=== PATIENT | male | born 1980 | race Caucasian/White ===

== ENCOUNTER 2018-07-02 10:20 | Emergency (ER) | payer BC ==
[2018-07-02] MEDS ORDERED: Ondansetron 4 MG/2 ML SDV IVPUSH ONE (10:30)
[2018-07-02] MEDS ORDERED: Ketorolac 30 MG/ML SDV IVPUSH ONE (10:30)
[2018-07-02] MEDS ORDERED: Sodium Chloride 0.9% 1,000 ML IV ONE (10:30)
--- NOTE | 2018-07-02 10:33 | EDM.PDOC ---
ED HPI GENERAL MEDICAL PROBLEM - General Chief Complaint: Flank Pain Stated Complaint: PAIN IN STOMACH Time Seen by Provider: 07/02/18 10:27 Source of Information: Reports: Patient History Limitations: Reports: No Limitations - History of Present Illness INITIAL COMMENTS - FREE TEXT/NARRATIVE: HISTORY AND PHYSICAL: History of present illness: He shouldn't is a 38-year-old male who presents to the emergency room today with complaints of right-sided flank and abdominal pain. He states he did have an episode similar approximately 2 weeks ago which lasted approximately 24 hours. He thought he may have had a kidney stone and passed it. This morning he woke up with pain again along the right flank wrapping around to the right mid abdomen. He states he has not been able to void yet this morning. Does have nausea, vomiting and loose stools today. Patient denies any fever, chills, headache, change in vision, syncope or near syncope. Denies any chest pain, back pain, shortness of breath or cough. Has not noted any blood in urine or stool. Denies any recent injury, trauma or falls. Patient has been eating and drinking appropriately. Review of systems: As per history of present illness and below otherwise all systems reviewed and negative. Past medical history: As per history of present illness and as reviewed below otherwise noncontributory. Surgical history: As per history of present illness and as reviewed below otherwise noncontributory. Social history: See social history for further information Family history: As per history of present illness and as reviewed below otherwise noncontributory. Physical exam: General: Well-developed and well-nourished 38-year-old male. Alert and oriented. Nontoxic appearing and in no acute distress. HEENT: Atraumatic, normocephalic, pupils equal and reactive bilaterally, negative for conjunctival pallor or scleral icterus, mucous membranes moist, TMs normal bilaterally, throat clear, neck supple, nontender, trachea midline. No drooling or trismus noted. No meningeal signs. No hot potato voice noted. Lungs: Clear to auscultation, breath sounds equal bilaterally, chest nontender. Heart: S1S2, regular rate and rhythm without overt murmur Abdomen: Soft, nondistended, nontender. Negative for masses or hepatosplenomegaly. Negative for costovertebral tenderness. Pelvis: Stable nontender. Genitourinary: Deferred. Rectal: Deferred. Skin: Intact, warm, dry. No lesions or rashes noted. Extremities: Atraumatic, moves all extremities per self with difficulty or deficits, negative for cords or calf pain. Neurovascular unremarkable. Neuro: Awake, alert, oriented. Cranial nerves II through XII unremarkable. Cerebellum unremarkable. Motor and sensory unremarkable throughout. Exam nonfocal. Notes: Patient states that he has had kidney stones in the past but has not ever had to see a urologist for management of this. He states he is usually pass on their own. Patient is agreeable to lab work and imaging at this time. CT of the abdomen and pelvis shows a 3 mm obstructing stone with the proximal right ureter mild to moderate proximal hydronephrosis. Patient does have a white count of 22. He did not find relief with the Toradol or morphine. He still appears in moderate to severe pain. We'll give him 1 mg of Dilaudid for better pain management. Dr. Yeh was consulted on this case. He will like the patient to come directly to his office after being discharged from the emergency room. Patient' s vital signs are stable and he is able to get a ride over to Dr. Cosby's urology clinic. Supportive care measures were reviewed and discussed. Voices understanding and is agreeable to plan of care. Denies any further questions or concerns at this time. Diagnostics: CBC, CMP, UA, CT abdomen and pelvis Therapeutics: IV fluid, Toradol, Zofran, Morphine, Dilaudid, Levaquin Impression: Kidney stone, right Plan: 1. Please go directly to Dr. Yeh's urology clinic for reevaluation and further management. 2. Return to the ED as needed and as discussed. Definitive disposition and diagnosis as appropriate pending reevaluation and review of above. right flank Pain Score (Numeric/FACES): 10 - Related Data Allergies Allergy/AdvReac Type Severity Reaction Status Date / Time Penicillins Allergy Anaphylactic Verified 07/02/18 10:30 Shock Home Meds: Home Meds . [No Known Home Meds] 07/02/18 [History] ED ROS GENERAL - Review of Systems Review Of Systems: ROS reveals no pertinent complaints other than HPI. ED EXAM, GI/ABD - Physical Exam Exam: See Below (See dictation) Course - Vital Signs Last Recorded V/S: Last Vital Signs Temp 97.4 F 04/18/19 10:27 Pulse 92 07/02/18 10:27 Resp 20 07/02/18 10:27 BP 141/81 H 07/02/18 10:27 Pulse Ox 96 07/02/18 10:27 - Orders/Labs/Meds Orders: Active Orders 24 hr Category Date Time Status Urinary Catheter Assessment [RC] ASDIRECTED Care 07/02/18 12:31 Active Urinary Catheter Insertion [Insert Urinary Catheter] [ Care 07/02/18 12:15 Ordered OM.PC] Stat CBC WITH AUTO DIFF [HEME] Stat Lab 07/02/18 10:32 Received COMPREHENSIVE METABOLIC PN,CMP [CHEM] Stat Lab 07/02/18 10:32 Received UA RFX TONY AND CULT IF INDIC [URIN] Stat Lab 07/02/18 12:27 Ordered Labs: Laboratory Tests 07/02/18 07/02/18 07/02/18 Range/Units 10:32 10:32 12:23 WBC 22.52 H (4.0-11.0) K/uL RBC 5.13 (4.50-5.90) M/uL Hgb 16.3 (13.0-17.0) g/dL Hct 47.8 (38.0-50.0) % MCV 93.2 (80.0-98.0) fL MCH 31.8 (27.0-32.0) pg MCHC 34.1 (31.0-37.0) g/dL RDW Std Deviation 44.9 (28.0-62.0) fl RDW Coeff of [place] 14 (11.0-15.0) % Plt Count 253 (150-400) K/uL MPV 9.70 (7.40-12.00) fL Add Manual Diff YES Neutrophils % (Manual) 80 (48.0-80.0) % Band Neutrophils % 3 % Lymphocytes % (Manual) 12 L (16.0-40.0) % Monocytes % (Manual) 2 (0.0-15.0) % Eosinophils % (Manual) 2 (0.0-7.0) % Basophils % (Manual) 1 (0.0-1.5) % Absolute Seg Neuts 18.0 H (1.4-5.7) Band Neutrophils # 0.7 Lymphocytes # (Manual) 2.7 H (0.6-2.4) Monocytes # (Manual) 0.5 (0.0-0.8) Eosinophils # (Manual) 0.5 (0.0-0.7) Basophils # (Manual) 0.2 H (0.0-0.1) Reactive Lymphocytes FEW Sodium 139 (136-148) mmol/L Potassium 4.4 (3.5-5.1) mmol/L Chloride 102 (98-107) mmol/L Carbon Dioxide 26.7 (21.0-32.0) mmol/L BUN 15 (7.0-18.0) mg/dL Creatinine 1.4 H (0.8-1.3) mg/dL Est Cr Clr Drug Dosing 74.70 mL/min Estimated GFR (MDRD) 56.1 ml/min Glucose 109 H (74-106) mg/dL Calcium 8.8 (8.5-10.1) mg/dL Total Bilirubin 0.3 (0.2-1.0) mg/dL AST 23 (15-37) IU/L ALT 40 (14-63) IU/L Alkaline Phosphatase 72 (46-116) U/L Total Protein 7.4 (6.4-8.2) g/dL Albumin 4.0 (3.4-5.0) g/dL Globulin 3.4 (2.6-4.0) g/dL Albumin/Globulin Ratio 1.2 (0.9-1.6) Urine Color YELLOW Urine Appearance CLEAR Urine pH 6.0 (5.0-8.0) Ur Specific [place] >= 1.030 (1.001-1.035) Urine Protein TRACE H (NEGATIVE) mg/dL Urine Glucose (UA) NEGATIVE (NEGATIVE) mg/dL Urine Ketones NEGATIVE (NEGATIVE) mg/dL Urine Occult Blood NEGATIVE (NEGATIVE) Urine Nitrite NEGATIVE (NEGATIVE) Urine Bilirubin NEGATIVE (NEGATIVE) Urine Urobilinogen 0.2 (<2.0) EU/dL Ur Leukocyte Esterase NEGATIVE (NEGATIVE) Urine RBC 0-1 (0-2/HPF) Urine WBC 0-1 (0-5/HPF) Ur Epithelial Cells RARE (NONE-FEW) Urine Bacteria RARE (NEGATIVE) Urine Mucus LIGHT (NONE-MOD) Meds: Medications Discontinued Medications Generic Name Dose Route Start Last Admin Trade Name Freq PRN Reason Stop Dose Admin Hydromorphone HCl 1 mg 07/02/18 11:28 07/02/18 11:35 Dilaudid IVPUSH 07/02/18 11:29 1 mg ONETIME ONE Administration Sodium Chloride 1,000 mls @ 999 mls/hr 07/02/18 10:30 07/02/18 10:36 Normal Saline IV 07/02/18 11:30 999 mls/hr STAT ONE Administration Levofloxacin/Dextrose 500 mg/ 100 mls @ 100 mls/hr 07/02/18 11:34 07/02/18 11 :42 Premix IV 07/02/18 12:33 100 mls/hr ONETIME ONE Administration Ketorolac Tromethamine 30 mg 07/02/18 10:30 07/02/18 10:35 Toradol IVPUSH 07/02/18 10:31 30 mg ONETIME ONE Administration Morphine Sulfate 4 mg 07/02/18 11:01 07/02/18 11:05 Morphine IVPUSH 07/02/18 11:02 4 mg ONETIME ONE Administration Ondansetron HCl 4 mg 07/02/18 10:30 07/02/18 10:36 Zofran IVPUSH 07/02/18 10:31 4 mg ONETIME ONE Administration Departure - Departure Time of Disposition: 13:10 Disposition: Home, Self-Care 01 Clinical Impression: Kidney stone on right side - Discharge Information Instructions: Kidney Stones, [id number] Referrals: PCP,Unknown [Primary Care Provider] - Forms: ED Department Discharge Additional Instructions: The following information is given to patients seen in the emergency department who are being discharged to home. This information is to outline your options for follow-up care. We provide all patients seen in our emergency department with a follow-up referral. The need for follow-up, as well as the timing and circumstances, are variable depending upon the specifics of your emergency department visit. If you don't have a primary care physician on staff, we will provide you with a referral. We always advise you to contact your personal physician following an emergency department visit to inform them of the circumstance of the visit and for follow-up with them and/or the need for any referrals to a consulting specialist. The emergency department will also refer you to a specialist when appropriate. This referral assures that you have the opportunity for follow-up care with a specialist. All of these measure are taken in an effort to provide you with optimal care, which includes your follow-up. Under all circumstances we always encourage you to contact your private physician who remains a resource for coordinating your care. When calling for follow-up care, please make the office aware that this follow-up is from your recent emergency room visit. If for any reason you are refused follow-up, please contact the [facility] Emergency Department at and asked to speak to the emergency department charge nurse. [facility] Specialty Care - Urology [address] [place] [id number] 1. Please go directly to Dr. Yeh's urology clinic for reevaluation and further management. He is expecting you NOW. 2. Return to the ED as needed and as discussed. - My Orders Last 24 Hours: My Active Orders 07/02/18 10:32 CBC WITH AUTO DIFF [HEME] Stat COMPREHENSIVE METABOLIC PN,CMP [CHEM] Stat 07/02/18 12:15 Urinary Catheter Insertion [Insert Urinary Catheter] [OM.PC] Stat 07/02/18 12:27 UA RFX TONY AND CULT IF INDIC [URIN] Stat 07/02/18 12:31 Urinary Catheter Assessment [RC] ASDIRECTED - Assessment/Plan Last 24 Hours: My Active Orders 07/02/18 10:32 CBC WITH AUTO DIFF [HEME] Stat COMPREHENSIVE METABOLIC PN,CMP [CHEM] Stat 07/02/18 12:15 Urinary Catheter Insertion [Insert Urinary Catheter] [OM.PC] Stat 07/02/18 12:27 UA RFX TONY AND CULT IF INDIC [URIN] Stat 07/02/18 12:31 Urinary Catheter Assessment [RC] ASDIRECTED
[2018-07-02] MEDS ORDERED: Morphine 4 MG/ML Syringe IVPUSH ONE (11:01)
--- NOTE | 2018-07-02 11:25 | CT ---
CT of the abdomen and pelvis without contrast. HISTORY: Left flank pain TECHNIQUE: Axial CT images were obtained of the abdomen and pelvis without contrast. Coronal and sagittal reconstructions obtained. FINDINGS: The lung bases are clear, no pleural effusion. The liver, spleen, adrenal glands, and pancreas appear unremarkable for noncontrast examination. The gallbladder appears normal. There is no bulky retroperitoneal lymphadenopathy. No abdominal ascites. There is a nonobstructing 3 mm stone within the proximal right ureter with mild proximal hydronephrosis. Punctate nonobstructing right renal stone. The large and small bowel are normal in caliber without evidence of obstruction. The appendix appears normal. There is no bulky pelvic lymphadenopathy. No free fluid. No free air. The urinary bladder appears normal. Grade 1 anterolisthesis of L5 on S1 with chronic bilateral spondylolysis. Mild degenerative changes noted within the hips bilaterally. IMPRESSION: 1. There is a 3 mm obstructing stone within the proximal right ureter mild to moderate proximal hydronephrosis.
[2018-07-02] MEDS ORDERED: HYDROmorphone 2 MG/ML Syringe IVPUSH ONE (11:28)
[2018-07-02] MEDS ORDERED: Levofloxacin/Dextrose 5%-Water 500 MG in Premix Bag 1 BAG IV ONE (11:34)
== END 2018-07-02 13:38 | disposition home or self-care (01) ==
LOC: MW.ED 10:20
DX: N13.2 Hydronephrosis with renal and ureteral calculous obstruction (principal); Z88.0 Allergy status to penicillin
CPT/HCPCS: 36415; 74176; 80053; 81001; 85025; 96361; 96365; 96375; 99284; J1170; J1885; J1956; J2270; J2405; J7040

== ENCOUNTER 2018-07-04 19:09 | Emergency (ER) | payer BC ==
[2018-07-04] MEDS ORDERED: Ondansetron 4 MG/2 ML SDV IVPUSH ONE (19:25)
[2018-07-04] MEDS ORDERED: Sodium Chloride 0.9% 1,000 ML IV ONE (19:25)
[2018-07-04] MEDS ORDERED: Ketorolac 30 MG/ML SDV IVPUSH ONE (19:25)
--- NOTE | 2018-07-04 19:28 | EDM.PDOC ---
ED HPI GENERAL MEDICAL PROBLEM - General Chief Complaint: Flank Pain Stated Complaint: PT HAS KIDNEY STONES Time Seen by Provider: 07/04/18 19:14 Source of Information: Reports: Patient History Limitations: Reports: No Limitations - History of Present Illness INITIAL COMMENTS - FREE TEXT/NARRATIVE: Presents reporting right CVA pain. The patient was seen in the emergency room on July 02 for right flank pain. At that time he was diagnosed with a right renal calculi measuring 3 mm which was obstructing and causing [id number] hydronephrosis. He was seen by Dr. Yeh in urology. He has been taking his antibiotic, Flomax, and 5 mg of hydrocodone every 2 hours. Now, he cannot tolerate the pain. He is nauseated as well. right flank Pain Score (Numeric/FACES): 10 - Related Data Allergies Allergy/AdvReac Type Severity Reaction Status Date / Time Penicillins Allergy Anaphylactic Verified 07/04/18 19:14 Shock Home Meds: Home Meds . [No Known Home Meds] 07/02/18 [History] Past Medical History Genitourinary History: Reports: Renal Calculus - Past Surgical History Male Surgical History: Reports: Other (See Below) Other Male Surgeries/Procedures: testicle removal Social & Family History - Family History Family Medical History: Noncontributory - Tobacco Use Smoking Status *Q: Current Every Day Smoker Years of Tobacco use: 20 Packs/Tins Daily: 1 - Caffeine Use Caffeine Use: Reports: Coffee, Energy Drinks, Soda, Tea - Recreational Drug Use Recreational Drug Use: No ED ROS GENERAL - Review of Systems Review Of Systems: ROS reveals no pertinent complaints other than HPI. ED EXAM, RENAL/ - Physical Exam Exam: See Below Exam Limited By: No Limitations General Appearance: Alert, Moderate Distress (Due to pain) Ears: Normal External Exam Nose: Normal Inspection Throat/Mouth: Normal Inspection Head: Atraumatic, Normocephalic Neck: Normal Inspection Respiratory/Chest: No Respiratory Distress, Lungs Clear, Normal Breath Sounds Cardiovascular: Normal Peripheral Pulses, Regular Rate, Rhythm, No Murmur GI/Abdominal: Soft Back Exam: Normal Inspection, CVA Tenderness (R) Neurological: Alert, Oriented Skin Exam: Warm, Dry, Intact, Normal Color, No Rash Lymphatic: No Adenopathy Course - Vital Signs Last Recorded V/S: Last Vital Signs Temp 36.1 C 07/04/18 19:09 Pulse 91 07/04/18 19:09 Resp 18 07/04/18 19:09 BP 151/95 H 07/04/18 19:09 Pulse Ox 96 07/04/18 19:09 - Orders/Labs/Meds Orders: Active Orders 24 hr Category Date Time Status Sodium Chloride 0.9% [Normal Saline] 1,000 ml Med 07/04/18 19:25 Active IV STAT Medication Orders Sodium Chloride (Normal Saline) 1,000 mls @ 999 mls/hr IV STAT ONE Stop: 07/04/18 20:25 Meds: Medications Generic Name Dose Route Start Last Admin Trade Name Freq PRN Reason Stop Dose Admin Sodium Chloride 1,000 mls @ 999 mls/hr 07/04/18 19:25 Normal Saline IV 07/04/18 20:25 STAT ONE Discontinued Medications Generic Name Dose Route Start Last Admin Trade Name Freq PRN Reason Stop Dose Admin Ketorolac Tromethamine 30 mg 07/04/18 19:25 Toradol IVPUSH 07/04/18 19:26 ONETIME ONE Ondansetron HCl 4 mg 07/04/18 19:25 Zofran IVPUSH 07/04/18 19:26 ONETIME ONE - Re-Assessments/Exams Free Text/Narrative Re-Assessment/Exam: 07/04/18 21:42 Dr. Yeh was here and again reviewed the case. Patient's pain is improved and desires to go home. Departure - Departure Time of Disposition: 21:43 Disposition: Home, Self-Care 01 Condition: Good Clinical Impression: Renal calculi - Discharge Information Referrals: Karma Yeh MD [Physician] - Forms: ED Department Discharge Additional Instructions: 1. Onto 2 hydrocodone every 6 hours as needed for pain. 2. Zofran as needed for nausea 3. Follow-up with Dr. Yeh as previously scheduled. - My Orders Last 24 Hours: My Active Orders 07/04/18 19:25 Sodium Chloride 0.9% [Normal Saline] 1,000 ml IV STAT - Assessment/Plan Last 24 Hours: My Active Orders 07/04/18 19:25 Sodium Chloride 0.9% [Normal Saline] 1,000 ml IV STAT
[2018-07-04] MEDS ORDERED: HYDROmorphone 2 MG/ML SDV IVPUSH ONE (20:10)
[2018-07-04] MEDS ORDERED: HYDROmorphone 1 MG/ML Syringe IVPUSH ONE (20:19)
[2018-07-04] MEDS ORDERED: Morphine 10 MG/ML Syringe IM ONE (22:02)
== END 2018-07-04 23:05 | disposition home or self-care (01) ==
LOC: MW.ED 19:09
DX: N20.0 Calculus of kidney (principal); F17.210 Nicotine dependence, cigarettes, uncomplicated; Z88.0 Allergy status to penicillin
CPT/HCPCS: 96361; 96372; 96374; 96375; 99284; J1170; J1885; J2270; J2405; J7040; 99283

== ENCOUNTER 2018-07-10 10:46 | Day surgery (SDC) | payer BC ==
[~2018-07-10 10:46] MED LIST: Lactated Ringers 1,000 ML IV SCH; Sodium Chloride 0.9% 10 ML SDV IV PRN; Sodium Chloride 0.9% 10 ML Syringe FLUSH PRN; Sodium Chloride 0.9% 2.5 ML Syringe FLUSH PRN
[2018-07-10] MEDS ORDERED: Lidocaine 2% 5 ML SDV ONE (11:36)
[2018-07-10] MEDS ORDERED: Midazolam 1 MG/ML 2 ML SDV ONE (11:36)
[2018-07-10] MEDS ORDERED: Propofol 200 MG/20 ML SDV ONE ×2 (11:36→11:39)
[2018-07-10] MEDS ORDERED: Ondansetron 4 MG/2 ML SDV ONE (11:36)
[2018-07-10] MEDS ORDERED: fentaNYL 250 MCG/5 ML SDV ONE (11:36)
--- NOTE | 2018-07-10 11:41 | PCM.PREANE ---
Preanesthetic Assessment - Anesthesia/Transfusion/Family Hx Anesthesia History: Prior Anesthesia Without Reaction Family History of Anesthesia Reaction: No Transfusion History: No Prior Transfusion(s) - Review of Systems General: No Symptoms Pulmonary: No Symptoms Cardiovascular: No Symptoms Gastrointestinal: Abdominal Pain Neurological: No Symptoms Other: Reports: None - Physical Assessment NPO Status Date: 07/09/18 O2 Sat by Pulse Oximetry: 96 Respiratory Rate: 16 Vital Signs: Last Vital Signs Temp 97.5 F 07/10/18 11:10 Pulse 84 07/10/18 11:10 Resp 16 07/10/18 11:10 BP 120/73 07/10/18 11:10 Pulse Ox 96 07/10/18 11:10 Height: 5 ft 11 in Weight: 84.368 kg ASA Class: 2 Mental Status: Alert & Oriented x3 Airway Class: Mallampati = 1 Dentition: Reports: Broken Tooth/Teeth ROM/Head Extension: Full Lungs: Clear to Auscultation, Normal Respiratory Effort Cardiovascular: Regular Rate, Regular Rhythm - Allergies Allergies/Adverse Reactions: Allergies Allergy/AdvReac Type Severity Reaction Status Date / Time Penicillins Allergy Anaphylactic Verified 07/08/18 09:58 Shock - Blood Blood Available: No - Anesthesia Plan Pre-Op Medication Ordered: None - Acknowledgements Anesthesia Type Planned: General Anesthesia Pt an Appropriate Candidate for the Planned Anesthesia: Yes Alternatives and Risks of Anesthesia Discussed w Pt/Guardian: Yes Pt/Guardian Understands and Agrees with Anesthesia Plan: Yes Additional Comments: remote hx of seizure 15 yeears ago, on no anticonvulsants PLAN: GA PreAnesthesia Questionnaire Genitourinary History: Reports: Renal Calculus Musculoskeletal History: Reports: Back Pain, Chronic, Fracture Other Musculoskeletal History: hx of fx spine 8 years ago Neurological History: Reports: Seizure Other Neuro History: hx of seizure 10 years ago- no cause found - Past Surgical History Male Surgical History: Reports: Other (See Below) Other Male Surgeries/Procedures: hx of Left Orchiectomy, hx of passing kidney stones Neurological Surgical History: Reports: None - SUBSTANCE USE Smoking Status *Q: Current Every Day Smoker Tobacco Use Within Last Twelve Months: Cigarettes Recreational Drug Use History: No - HOME MEDS Home Medications: Home Meds Ciprofloxacin HCl [Cipro] 500 mg PO BID 07/08/18 [History] Hydrocodone/Acetaminophen [Hydrocodon-Acetaminophen 5-325] 1 tab PO Q6H PRN [History] Tamsulosin [Flomax] 0.4 mg PO BEDTIME 07/08/18 [History] - CURRENT (IN HOUSE) MEDS Current Meds: Current Medications Lactated Ringer's (Ringers, Lactated) 1,000 mls @ 100 mls/hr IV ASDIRECTED BERNABE Last Admin: 07/10/18 11:15 Dose: 100 mls/hr Sodium Chloride (Saline Flush) 10 ml FLUSH ASDIRECTED PRN PRN Reason: Keep Vein Open Sodium Chloride (Saline Flush) 2.5 ml FLUSH ASDIRECTED PRN PRN Reason: Keep Vein Open Sodium Chloride (Normal Saline) 10 ml IV ASDIRECTED PRN PRN Reason: IV Use Discontinued Medications Fentanyl (Sublimaze) Confirm Administered Dose 250 mcg .ROUTE .STK-MED ONE Stop: 07/10/18 11:37 Lidocaine (Xylocaine-Mpf 2%) Confirm Administered Dose 5 ml .ROUTE .STK-MED ONE Stop: 07/10/18 11:37 Midazolam HCl (Versed 1 Mg/Ml) Confirm Administered Dose 2 mg .ROUTE .STK-MED ONE Stop: 07/10/18 11:37 Ondansetron HCl (Zofran) Confirm Administered Dose 4 mg .ROUTE .STK-MED ONE Stop: 07/10/18 11:37 Propofol (Diprivan 20 Ml) Confirm Administered Dose 200 mg .ROUTE .STK-MED ONE Stop: 07/10/18 11:37
[2018-07-10] MEDS ORDERED: Glycopyrrolate 0.2 MG/ML SDV ONE (13:11)
[2018-07-10] MEDS ORDERED: Phenylephrine/Normal Saline 100 MCG/ML 10 ML Syringe ONE (13:30)
[2018-07-10] MEDS ORDERED: Acetaminophen/HYDROcodone 325-5 MG Tab PO PRN (13:40)
--- NOTE | 2018-07-10 14:17 | PCM.POSTAN ---
POST ANESTHESIA ASSESSMENT - MENTAL STATUS Mental Status: Alert, Oriented - RESPIRATORY Respiratory Status: Respiratory Rate WNL, Airway Patent, O2 Saturation Stable - CARDIOVASCULAR CV Status: Pulse Rate WNL, Blood Pressure Stable - GASTROINTESTINAL GI Status: No Symptoms - POST OP HYDRATION Hydration Status: Adequate & Stable - OBSERVATIONS Free Text/Narrative:: The patient tolerated the procedure well. There were no apparent anesthetic complications at this time.
[2018-07-10] MEDS ORDERED: Tamsulosin 0.4 MG Cap.ER PO SCH (21:00)
--- NOTE | 2018-07-10 21:04 | OR ---
SURGEON: Karma Yeh M.D. DATE OF PROCEDURE: 07/10/2018 PREOPERATIVE DIAGNOSIS: Left upper ureteral stone. POSTOPERATIVE DIAGNOSIS: Left upper ureteral stone. OPERATION: ESWL. DESCRIPTION OF PROCEDURE: The patient was given general anesthesia. He was on the lithotripsy table. The position of the patient was adjusted, so the stone could be treated and eventually received a total of 2400 shocks monitoring as we went. The shadow of the stone completely disappeared. With that done, the procedure was terminated and the patient was sent to recovery room in good condition. ELENO / ANDERSON /[id number]
--- NOTE | 2018-07-13 18:21 | OR ---
SURGEON: Karma Yeh M.D. DATE OF PROCEDURE: 07/10/2018 ADDENDUM: PREOPERATIVE DIAGNOSIS: Right upper ureteral stone. POSTOPERATIVE DIAGNOSIS: Right upper ureteral stone. ELENO / ANDERSON /[id number]
== END 2018-07-10 14:53 ==
LOC: MW.SDS 10:46
PROVIDERS: ATTEND Urology
DX: N20.1 Calculus of ureter (principal); F17.210 Nicotine dependence, cigarettes, uncomplicated; G43.909 Migraine, unspecified, not intractable, without status migrainosus; Z88.0 Allergy status to penicillin; Z79.899 Other long term (current) drug therapy
CPT/HCPCS: 50590; J2001; J2250; J2370; J2405; J2704; J3010; J3490; J7120

== ENCOUNTER 2019-02-27 19:05 | Emergency (ER) | payer BC ==
[2019-02-27] MEDS ORDERED: Diphtheria,Pertussis(Acell),Tetanus Vaccine 0.5 ML Syringe IM ONE (19:30)
--- NOTE | 2019-02-27 19:42 | EDM.PDOC ---
ED HPI GENERAL MEDICAL PROBLEM - General Chief Complaint: Upper Extremity Injury/Pain Stated Complaint: NAIL IN LT HAND Time Seen by Provider: 02/27/19 19:28 - History of Present Illness INITIAL COMMENTS - FREE TEXT/NARRATIVE: HISTORY AND PHYSICAL: History of present illness: The patient is a healthy 38-year-old who is unsure of his last tetanus shot and presents after receiving a puncture wound to his left palm of the hand by a nail about 30 minutes ago. The patient said he was pushing on somewhat and did not realize that a nail was protruding and he pushed forcefully with his hand into the nail. He did not strike it and it was only with his own force that the nail penetrated his hand. He is here because he needs a tetanus shot and also wants evaluation as he is concerned about infection. He has full ability to move all of his fingers in his hands and says that prior to these events he was in his usual state of good health with no systemic issues. There were no other injuries Review of systems: As per history of present illness and below otherwise all systems reviewed and negative. Past medical history: As per history of present illness and as reviewed below otherwise noncontributory. Surgical history: As per history of present illness and as reviewed below otherwise noncontributory. Social history: No reported history of drug or alcohol abuse. Family history: As per history of present illness and as reviewed below otherwise noncontributory. Physical exam: Well-developed well-nourished man who is nontoxic and vital signs are noted by me. HEENT: Atraumatic, normocephalic, negative for conjunctival pallor or scleral icterus, mucous membranes moist, throat clear, neck supple, nontender, trachea midline. Lungs: Clear to auscultation, breath sounds equal bilaterally, chest nontender. Heart: S1S2, regular, negative for clicks, rubs, or JVD. Abdomen: Soft, nondistended, nontender. NABS Pelvis: Deferred Genitourinary: Deferred. Rectal: Deferred. Extremities: Atraumatic and full range of motion of all extremities with the exception of the palmar surface of the left hand where at the proximal aspect of the opponens there is a small puncture wound seen without any drainage or bleeding and no ecchymosis or gross soft tissue swelling. The wound appears clean and there is no palpable foreign body or crepitus. There are no bony deformities or other injuries appreciated and the patient has full range of motion of all of the digits and the wrist and has full opponens function.,,the legs are negative for cords or calf pain. Neurovascular unremarkable. Neuro: Awake, alert, oriented. Cranial nerves II through XII unremarkable. Cerebellum unremarkable. Motor and sensory unremarkable throughout. Exam nonfocal. Diagnostics: X-ray left hand Therapeutics: Tdap, local cleansing of wound Impression: Puncture wound of left hand Definitive disposition and diagnosis as appropriate pending reevaluation and review of above. left hand Pain Score (Numeric/FACES): 5 - Related Data Allergies Allergy/AdvReac Type Severity Reaction Status Date / Time Penicillins Allergy Anaphylactic Verified 02/27/19 19:10 Shock Home Meds: Home Meds . [No Known Home Meds] 02/27/19 [History] Past Medical History Genitourinary History: Reports: Renal Calculus Musculoskeletal History: Reports: Back Pain, Chronic, Fracture Other Musculoskeletal History: hx of fx spine 8 years ago Neurological History: Reports: Seizure Other Neuro History: hx of seizure 10 years ago- no cause found - Past Surgical History Male Surgical History: Reports: Other (See Below) Other Male Surgeries/Procedures: hx of Left Orchiectomy, hx of passing kidney stones Neurological Surgical History: Reports: None Social & Family History - Family History Family Medical History: Noncontributory - Tobacco Use Smoking Status *Q: Current Every Day Smoker Years of Tobacco use: 20 Packs/Tins Daily: 1 - Caffeine Use Caffeine Use: Reports: Coffee, Energy Drinks, Soda, Tea - Recreational Drug Use Recreational Drug Use: No Review of Systems - Review of Systems Review Of Systems: Comprehensive ROS is negative, except as noted in HPI. ED EXAM, GENERAL - Physical Exam Exam: See Below (See dictation) Course - Vital Signs Last Recorded V/S: Last Vital Signs Temp 36.6 C 02/27/19 19:25 Pulse 80 02/27/19 19:25 Resp 18 02/27/19 19:25 BP 108/64 02/27/19 19:25 Pulse Ox 96 02/27/19 19:25 - Orders/Labs/Meds Orders: Active Orders 24 hr Category Date Time Status Communication Order [RC] STAT Care 12/14/19 19:36 Active Vaccines to be Administered [RC] PER UNIT ROUTINE Care 02/27/19 19:30 Active Meds: Medications Discontinued Medications Generic Name Dose Route Start Last Admin Trade Name Alverto PRN Reason Stop Dose Admin Diphtheria/Tetanus/Acell Pertussis 0.5 ml 02/27/19 19:30 02/27/19 19:50 Adacel IM 02/27/19 19:31 0.5 ml .ONCE ONE Administration Departure - Departure Time of Disposition: 20:06 Disposition: Home, Self-Care 01 Condition: Good Clinical Impression: Puncture wound of left hand - Discharge Information Referrals: Yemi Ivory MD [Primary Care Provider] - Forms: ED Department Discharge Additional Instructions: The following information is given to patients seen in the emergency department who are being discharged to home. This information is to outline your options for follow-up care. We provide all patients seen in our emergency department with a follow-up referral. The need for follow-up, as well as the timing and circumstances, are variable depending upon the specifics of your emergency department visit. If you don't have a primary care physician on staff, we will provide you with a referral. We always advise you to contact your personal physician following an emergency department visit to inform them of the circumstance of the visit and for follow-up with them and/or the need for any referrals to a consulting specialist. The emergency department will also refer you to a specialist when appropriate. This referral assures that you have the opportunity for followup care with a specialist. All of these measure are taken in an effort to provide you with optimal care, which includes your followup. Under all circumstances we always encourage you to contact your private physician who remains a resource for coordinating your care. When calling for followup care, please make the office aware that this follow-up is from your recent emergency room visit. If for any reason you are refused follow-up, please contact the [facility] emergency department at and ask to speak to the emergency department charge nurse. [facility] Primary care- Internal Medicine and Family [address] [id number] Keep the wound clean and dry and continue to monitor the area for any redness swelling or drainage. Please take antibiotics as you have been prescribed for prophylaxis and follow-up with your provider or one of ours in the clinic for reevaluation and further care as needed. Return to ER as needed and as discussed Sepsis Event Note - Evaluation Sepsis Screening Result: No Definite Risk - Focused Exam Vital Signs: Vital Signs Temp Pulse Resp BP Pulse Ox 02/27/19 19:25 36.6 C 80 18 108/64 96 Date Exam was Performed: 02/27/19 Time Exam was Performed: 20:06 - My Orders Last 24 Hours: My Active Orders 02/27/19 19:30 Vaccines to be Administered [RC] PER UNIT ROUTINE 02/27/19 19:36 Communication Order [RC] STAT - Assessment/Plan Last 24 Hours: My Active Orders 02/27/19 19:30 Vaccines to be Administered [RC] PER UNIT ROUTINE 02/27/19 19:36 Communication Order [RC] STAT
--- NOTE | 2019-02-27 19:57 | CR ---
Indication: Rule out foreign body. Technique: Three views of the left hand. Comparison: None Findings: No fracture or subluxation is identified. No radiopaque foreign body is identified. The joint spaces are well maintained. Impression: No acute fracture. No radiopaque foreign body. Dictated by Gretel Lr MD @ Feb 27 2019 7:55PM Signed by Dr. Gretel Lr @ Feb 27 2019 7:55PM
== END 2019-02-27 20:10 | disposition home or self-care (01) ==
LOC: MW.ED 19:05
DX: S61.432A Puncture wound without foreign body of left hand, initial encounter (principal); F17.210 Nicotine dependence, cigarettes, uncomplicated; Z88.0 Allergy status to penicillin; Z23 Encounter for immunization; W45.0XXA Nail entering through skin, initial encounter
CPT/HCPCS: 73130-26-LT; 73130-LT; 90471; 90715; 99283; 99283-25

== ENCOUNTER 2019-05-31 17:13 | Observation (INO) | payer BC, OTHER ==
--- NOTE | 2019-05-31 19:01 | CR ---
Chest: 2 views of the chest were obtained. Comparison: No previous chest x-ray. Slight atelectasis is seen within the lateral left costophrenic angle. Lungs otherwise are clear. Heart size and mediastinum are normal. Mild scoliosis is noted within the spine. Impression: 1. Slight atelectasis within the lateral left costophrenic angle. 2. Nothing acute is appreciated. Diagnostic code #2 Study was dictated in MDT
[2019-05-31 19:10] LABS: BLOOD UREA NITROGEN,BUN 15 mg/dL (7.0-18.0); CARBON DIOXIDE,CO2 26.6 mmol/L (21.0-32.0); CHLORIDE,CL 103 mmol/L (98-107); GLUCOSE RANDOM 95 mg/dL (74-106); POTASSIUM,K 4.7 mmol/L (3.5-5.1); SODIUM,NA 138 mmol/L (136-148)
[2019-05-31] MEDS ORDERED: Sodium Chloride 0.9% 1,000 ML IV ONE (19:34)
--- NOTE | 2019-05-31 19:43 | EDM.PDOC ---
ED HPI GENERAL MEDICAL PROBLEM - General Chief Complaint: Fever Stated Complaint: FEVERISH,WEAK Time Seen by Provider: 05/31/19 17:38 Source of Information: Reports: Patient History Limitations: Reports: No Limitations - History of Present Illness INITIAL COMMENTS - FREE TEXT/NARRATIVE: This 38 year old male is admitted to the ED with a chief complaint of fever and chills with associated weakness that started around 12:30PM today. He states that he is getting worse. He states that his appetite is good and that he is taking in fluids. He denies any nausea or vomiting. He denies any other symptoms at this time. Onset: Today Location: Reports: Chest (mild congestion with occasional cough) Severity: Mild (to moderate) Improves with: Reports: None Worsens with: Reports: None Bilateral Arm Pain Score (Numeric/FACES): 5 - Related Data Allergies Allergy/AdvReac Type Severity Reaction Status Date / Time Penicillins Allergy Anaphylactic Verified 05/31/19 18:14 Shock Home Meds: Home Meds . [No Known Home Meds] 02/27/19 [History] Past Medical History Genitourinary History: Reports: Renal Calculus Musculoskeletal History: Reports: Back Pain, Chronic, Fracture Other Musculoskeletal History: hx of fx spine 8 years ago Neurological History: Reports: Seizure Other Neuro History: hx of seizure 10 years ago- no cause found - Past Surgical History Male Surgical History: Reports: Other (See Below) Other Male Surgeries/Procedures: hx of Left Orchiectomy, hx of passing kidney stones Neurological Surgical History: Reports: None Social & Family History - Family History Family Medical History: Noncontributory - Tobacco Use Smoking Status *Q: Current Every Day Smoker Years of Tobacco use: 22 Packs/Tins Daily: 0.5 - Caffeine Use Caffeine Use: Reports: Coffee, Energy Drinks, Soda, Tea - Recreational Drug Use Recreational Drug Use: No ED ROS GENERAL - Review of Systems Review Of Systems: See Below Constitutional: Reports: Fever, Chills HEENT: Reports: No Symptoms Respiratory: Reports: No Symptoms Cardiovascular: Reports: No Symptoms Endocrine: Reports: No Symptoms GI/Abdominal: Reports: No Symptoms : Reports: No Symptoms Musculoskeletal: Reports: No Symptoms Skin: Reports: No Symptoms Neurological: Reports: No Symptoms ED EXAM, GENERAL - Physical Exam Exam: See Below Exam Limited By: No Limitations General Appearance: Alert, WD/WN, No Apparent Distress, Other (looks slightyl ill.) Ears: Normal External Exam, Normal Canal, Hearing Grossly Normal, Normal TMs Ear Exam: Bilateral Ear: Auricle Normal, Canal Normal, TM normal Nose: Normal Inspection, Normal Mucosa, No Blood Throat/Mouth: Normal Lips, Normal Teeth, Normal Gums, Other (posteior pharynx is slightly injected) Head: Atraumatic, Normocephalic Neck: Normal Inspection, Supple, Non-Tender, Full Range of Motion. No: Lymphadenopathy (L), Lymphadenopathy (R) Respiratory/Chest: No Respiratory Distress, Lungs Clear, Normal Breath Sounds, No Accessory Muscle Use, Chest Non-Tender Cardiovascular: Normal Peripheral Pulses, Regular Rate, Rhythm, No Edema, No Gallop, No JVD, No Murmur Peripheral Pulses: 3+: Radial (L), Radial (R), Dorsalis Pedis (L), Dorsalis Pedis (R), 4+: Carotid (L), Carotid (R) GI/Abdominal: Normal Bowel Sounds, Soft, Non-Tender, No Organomegaly, No Distention, No Abnormal Bruit, No Mass (Male) Exam: Deferred Rectal (Males) Exam: Deferred Back Exam: Normal Inspection, Full Range of Motion, NT Extremities: Normal Inspection, Normal Range of Motion, Non-Tender, Normal Capillary Refill, No Pedal Edema Neurological: Alert, Oriented, CN II-XII Intact, Normal Cognition, Normal Gait, Normal Reflexes, No Motor/Sensory Deficits Psychiatric: Normal Affect, Normal Mood Skin Exam: Warm, Dry, No Rash, Other (slightly pale.) Lymphatic: No Adenopathy Course - Vital Signs Text/Narrative:: 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 He will be admitted for further evaluation to OBS/TELE. The patient agrees with the admission plan. Last Recorded V/S: Last Vital Signs Temp 97.6 F 05/31/19 18:10 Pulse 99 05/31/19 18:10 Resp 20 05/31/19 18:10 BP 118/71 05/31/19 18:10 Pulse Ox 98 05/31/19 18:10 - Orders/Labs/Meds Orders: Active Orders 24 hr Category Date Time Status CULTURE BLOOD [BC] Stat Lab 05/31/19 19:37 Ordered CULTURE BLOOD [BC] Stat Lab 05/31/19 19:37 Ordered INFLUENZA A+B AG SCREEN [RM] Stat Lab 05/31/19 19:24 Received UA W/TONY RFLX IF INDICATED [URIN] Stat Lab 05/31/19 19:37 Ordered Sodium Chloride 0.9% [Normal Saline] 1,000 ml Med 05/31/19 19:34 Active IV .Bolus Blood Culture x2 Reflex Set [OM.PC] Stat Oth 05/31/19 19:37 Ordered Isolation [COMM] Routine Oth 05/31/19 18:36 Active Medication Orders Sodium Chloride (Normal Saline) 1,000 mls @ 1,000 mls/hr IV .Bolus ONE Stop: 05/31/19 20:33 Labs: Laboratory Tests 05/31/19 05/31/19 Range/Units 18:36 18:36 WBC 14.69 H (4.0-11.0) K/uL RBC 5.01 (4.50-5.90) M/uL Hgb 15.9 (13.0-17.0) g/dL Hct 48.1 (38.0-50.0) % MCV 96.0 (80.0-98.0) fL MCH 31.7 (27.0-32.0) pg MCHC 33.1 (31.0-37.0) g/dL RDW Std Deviation 50.5 (28.0-62.0) fl RDW Coeff of [place] 14 (11.0-15.0) % Plt Count 217 (150-400) K/uL MPV 10.20 (7.40-12.00) fL Neut % (Auto) 87.0 H (48.0-80.0) % Lymph % (Auto) 6.1 L (16.0-40.0) % [place] % (Auto) 4.2 (0.0-15.0) % Eos % (Auto) 2.4 (0.0-7.0) % Baso % (Auto) 0.3 (0.0-1.5) % Neut # (Auto) 12.8 H (1.4-5.7) K/uL Lymph # (Auto) 0.9 (0.6-2.4) K/uL [place] # (Auto) 0.6 (0.0-0.8) K/uL Eos # (Auto) 0.4 (0.0-0.7) K/uL Baso # (Auto) 0.0 (0.0-0.1) K/uL Nucleated RBC % 0.0 /100WBC Nucleated RBCs # 0 K/uL Sodium 138 (136-148) mmol/L Potassium 4.7 (3.5-5.1) mmol/L Chloride 103 (98-107) mmol/L Carbon Dioxide 26.6 (21.0-32.0) mmol/L BUN 15 (7.0-18.0) mg/dL Creatinine 1.1 (0.8-1.3) mg/dL Est Cr Clr Drug Dosing 95.08 mL/min Estimated GFR (MDRD) > 60.0 ml/min Glucose 95 (74-106) mg/dL Calcium 8.9 (8.5-10.1) mg/dL Magnesium 2.1 (1.8-2.4) mg/dL Total Bilirubin 0.4 (0.2-1.0) mg/dL AST 19 (15-37) IU/L ALT 34 (14-63) IU/L Alkaline Phosphatase 74 (46-116) U/L Total Protein 7.3 (6.4-8.2) g/dL Albumin 4.2 (3.4-5.0) g/dL Globulin 3.1 (2.6-4.0) g/dL Albumin/Globulin Ratio 1.4 (0.9-1.6) Meds: Medications Generic Name Dose Route Start Last Admin Trade Name Freq PRN Reason Stop Dose Admin Sodium Chloride 1,000 mls @ 1,000 mls/hr 05/31/19 19:34 Normal Saline IV 05/31/19 20:33 .Bolus ONE Departure - Departure Time of Disposition: 19:50 Disposition: Refer to Observation Condition: Fair Clinical Impression: Fever of unknown origin, Mild dehydration - Discharge Information *PRESCRIPTION DRUG MONITORING PROGRAM REVIEWED*: Yes *COPY OF PRESCRIPTION DRUG MONITORING REPORT IN PATIENT JHONY: Yes Referrals: PCP,None [Primary Care Provider] - Sepsis Event Note - Evaluation Sepsis Screening Result: No Definite Risk - Focused Exam Vital Signs: Vital Signs Temp Pulse Resp BP Pulse Ox 05/31/19 18:10 97.6 F 99 20 118/71 98 Date Exam was Performed: 05/31/19 Time Exam was Performed: 19:38 - My Orders Last 24 Hours: My Active Orders 05/31/19 18:36 Isolation [COMM] Routine 05/31/19 19:24 INFLUENZA A+B AG SCREEN [RM] Stat 05/31/19 19:34 Sodium Chloride 0.9% [Normal Saline] 1,000 ml IV .Bolus 05/31/19 19:37 CULTURE BLOOD [BC] Stat CULTURE BLOOD [BC] Stat UA W/TONY RFLX IF INDICATED [URIN] Stat Blood Culture x2 Reflex Set [OM.PC] Stat - Assessment/Plan Last 24 Hours: My Active Orders 05/31/19 18:36 Isolation [COMM] Routine 05/31/19 19:24 INFLUENZA A+B AG SCREEN [RM] Stat 05/31/19 19:34 Sodium Chloride 0.9% [Normal Saline] 1,000 ml IV .Bolus 05/31/19 19:37 CULTURE BLOOD [BC] Stat CULTURE BLOOD [BC] Stat UA W/TONY RFLX IF INDICATED [URIN] Stat Blood Culture x2 Reflex Set [OM.PC] Stat
[2019-05-31] MEDS ORDERED: Levofloxacin/Dextrose 5%-Water 750 MG in Premix Bag 1 BAG IV ONE (22:11)
[2019-05-31] MEDS ORDERED: Acetaminophen 325 MG Tab PO PRN (22:12)
[2019-05-31] MEDS ORDERED: Sodium Chloride 0.9% 1,000 ML IV SCH (22:15)
--- NOTE | 2019-05-31 22:19 | PCM.HP.2 ---
H&P History of Present Illness - General Date of Service: 05/31/19 Admit Problem/Dx: Admission Diagnosis/Problem Admission Diagnosis/Problem Fever of unknown origin - History of Present Illness Initial Comments - Free Text/Narative: 38 yo male who presents to the ED with complaints of fevers, myalgias and chills. Patient reports a chronic smokers cough. He denies any chest pain or shortness of breath. White count was 14,000. CXR shows possible left lower lobe infiltrate. Bilateral Arm Pain Score (Numeric/FACES): 5 - Related Data Allergies/Adverse Reactions: Allergies Allergy/AdvReac Type Severity Reaction Status Date / Time Penicillins Allergy Anaphylactic Verified 06/01/19 07:38 Shock Home Medications: Home Meds . [No Known Home Meds] 02/27/19 [History] Past Medical History Genitourinary History: Reports: Renal Calculus Musculoskeletal History: Reports: Back Pain, Chronic, Fracture Other Musculoskeletal History: hx of fx spine 8 years ago Neurological History: Reports: Seizure Other Neuro History: hx of seizure 10 years ago- no cause found - Past Surgical History Male Surgical History: Reports: Other (See Below) Other Male Surgeries/Procedures: hx of Left Orchiectomy, hx of passing kidney stones Neurological Surgical History: Reports: None Social & Family History - Family History Family Medical History: Noncontributory - Tobacco Use Smoking Status *Q: Current Every Day Smoker Years of Tobacco use: 22 Packs/Tins Daily: 0.5 - Caffeine Use Caffeine Use: Reports: Coffee, Energy Drinks, Soda, Tea - Recreational Drug Use Recreational Drug Use: No H&P Review of Systems - Review of Systems: Review Of Systems: Comprehensive ROS is negative, except as noted in HPI. Exam - Exam Exam: See Below - Vital Signs Vital Signs: Last Vital Signs Temp 100.5 C H 05/31/19 21:51 Pulse 97 05/31/19 21:51 Resp 18 05/31/19 21:51 BP 116/79 05/31/19 21:51 Pulse Ox 98 05/31/19 21:51 Weight: 83.915 kg - Exam General: Alert, Oriented HEENT: Mucosa Moist & [place] Neck: Supple Lungs: Clear to Auscultation, Normal Respiratory Effort. No: Crackles, Wheezing Cardiovascular: Regular Rate, Regular Rhythm GI/Abdominal Exam: Normal Bowel Sounds, Soft Extremities: Non-Tender, No Pedal Edema Skin: Warm, Dry, Intact Neurological: No: Focal Deficit - Patient Data Lab Results Last 24 hrs: Laboratory Results - last 24 hr 05/31/19 05/31/19 05/31/19 Range/Units 18:36 18:36 20:38 WBC 14.69 H (4.0-11.0) K/uL RBC 5.01 (4.50-5.90) M/uL Hgb 15.9 (13.0-17.0) g/dL Hct 48.1 (38.0-50.0) % MCV 96.0 (80.0-98.0) fL MCH 31.7 (27.0-32.0) pg MCHC 33.1 (31.0-37.0) g/dL RDW Std Deviation 50.5 (28.0-62.0) fl RDW Coeff of [place]ician[place] 14 (11.0-15.0) % Plt Count 217 (150-400) K/uL MPV 10.20 (7.40-12.00) fL Neut % (Auto) 87.0 H (48.0-80.0) % Lymph % (Auto) 6.1 L (16.0-40.0) % [place] % (Auto) 4.2 (0.0-15.0) % Eos % (Auto) 2.4 (0.0-7.0) % Baso % (Auto) 0.3 (0.0-1.5) % Neut # (Auto) 12.8 H (1.4-5.7) K/uL Lymph # (Auto) 0.9 (0.6-2.4) K/uL [place] # (Auto) 0.6 (0.0-0.8) K/uL Eos # (Auto) 0.4 (0.0-0.7) K/uL Baso # (Auto) 0.0 (0.0-0.1) K/uL Nucleated RBC % 0.0 /100WBC Nucleated RBCs # 0 K/uL Sodium 138 (136-148) mmol/L Potassium 4.7 (3.5-5.1) mmol/L Chloride 103 (98-107) mmol/L Carbon Dioxide 26.6 (21.0-32.0) mmol/L BUN 15 (7.0-18.0) mg/dL Creatinine 1.1 (0.8-1.3) mg/dL Est Cr Clr Drug Dosing 95.08 mL/min Estimated GFR (MDRD) > 60.0 ml/min Glucose 95 (74-106) mg/dL Calcium 8.9 (8.5-10.1) mg/dL Magnesium 2.1 (1.8-2.4) mg/dL Total Bilirubin 0.4 (0.2-1.0) mg/dL AST 19 (15-37) IU/L ALT 34 (14-63) IU/L Alkaline Phosphatase 74 (46-116) U/L Total Protein 7.3 (6.4-8.2) g/dL Albumin 4.2 (3.4-5.0) g/dL Globulin 3.1 (2.6-4.0) g/dL Albumin/Globulin Ratio 1.4 (0.9-1.6) Urine Color YELLOW Urine Appearance CLEAR Urine pH 6.0 (5.0-8.0) Ur Specific [place] 1.025 (1.001-1.035) Urine Protein NEGATIVE (NEGATIVE) mg/dL Urine Glucose (UA) NEGATIVE (NEGATIVE) mg/dL Urine Ketones NEGATIVE (NEGATIVE) mg/dL Urine Occult Blood TRACE-LYSED H (NEGATIVE) Urine Nitrite NEGATIVE (NEGATIVE) Urine Bilirubin NEGATIVE (NEGATIVE) Urine Urobilinogen 0.2 (<2.0) EU/dL Ur Leukocyte Esterase NEGATIVE (NEGATIVE) Urine RBC 0-1 (0-2/HPF) Urine WBC 0-1 (0-5/HPF) Ur Epithelial Cells RARE (NONE-FEW) Urine Bacteria RARE (NEGATIVE) Result Diagrams: 06/01/19 06:26 06/01/19 06:26 Dexter Results Last 24 hrs: Microbiology 05/31/19 19:24 Influenza Type A Antigen Screen - Final Nasopharyngeal Swab NEGATIVE INFLUENZA A VIRUS AG REFERENCE RANGE: NEGATIVE Influenza Type B Antigen Screen - Final NEGATIVE INFLUENZA B VIRUS AG REFERENCE RANGE: NEGATIVE Sepsis Event Note - Evaluation Sepsis Screening Result: No Definite Risk - Focused Exam Vital Signs: Vital Signs Temp Temp Pulse Resp BP Pulse Ox 05/31/19 21:51 100.5 C H 97 18 116/79 98 05/31/19 21:22 37.2 C 99 14 111/62 99 05/31/19 19:44 37.8 C 99 20 119/64 100 05/31/19 18:10 36.4 C 99 20 118/71 98 Date Exam was Performed: 06/01/19 Time Exam was Performed: 08:16 Problem List Initiated/Reviewed/Updated: Yes Orders Last 24hrs: Active Orders 24 hr Category Date Time Status Admission Status [Patient Status] [ADT] Stat ADT 05/31/19 19:47 Active Antiembolic Devices [RC] PER UNIT ROUTINE Care 05/31/19 22:13 Ordered Oxygen Therapy [RC] PRN Care 05/31/19 22:12 Ordered Up ad Tanisha [RC] ASDIRECTED Care 05/31/19 22:12 Ordered VTE/DVT Education [RC] PER UNIT ROUTINE Care 05/31/19 22:12 Ordered Vital Signs [RC] Q4H Care 05/31/19 22:12 Ordered Regular Diet [DIET] Diet 05/31/19 Breakfast Ordered CBC WITH AUTO DIFF [HEME] AM Lab 06/01/19 05:11 Ordered COMPREHENSIVE METABOLIC PN,CMP [CHEM] AM Lab 06/01/19 05:11 Ordered CULTURE BLOOD [BC] Stat Lab 05/31/19 19:50 Received CULTURE BLOOD [BC] Stat Lab 05/31/19 19:59 Received Acetaminophen [Tylenol] Med 05/31/19 22:12 Ordered 650 mg PO Q4H PRN Levofloxacin/Dextrose 5%-Water [Levaquin in D5W 750 MG/ Med 05/31/19 22:11 Ordered 150 ML] 750 mg Premix Bag 1 bag IV ONETIME Sodium Chloride 0.9% @ 125 MLS/HR (1,000ml) Med 05/31/19 22:15 Ordered Sodium Chloride 0.9% [Normal Saline] 1,000 ml IV ASDIRECTED Blood Culture x2 Reflex Set [OM.PC] Stat Oth 05/31/19 19:37 Ordered Isolation [COMM] Routine Oth 05/31/19 18:36 Active Sequential Compression Device [OM.PC] Per Unit Routine Oth 05/31/19 22:12 Ordered Resuscitation Status Routine Resus Stat 05/31/19 22:12 Ordered Medication Orders Acetaminophen (Tylenol) 650 mg PO Q4H PRN PRN Reason: Pain (Mild 1-3)/fever Levofloxacin/Dextrose 750 mg/ (Premix) 150 mls @ 100 mls/hr IV ONETIME ONE Stop: 05/31/19 23:40 Sodium Chloride (Normal Saline) 1,000 mls @ 125 mls/hr IV ASDIRECTED BERNABE Assessment/Plan Comment:: 38 yo male admitted for fever and possible pneumonia. We will treat with Levaquin. blood cultures ordered.
[2019-06-01 07:09] LABS: BLOOD UREA NITROGEN,BUN 12 mg/dL (7.0-18.0); CARBON DIOXIDE,CO2 24.2 mmol/L (21.0-32.0); CHLORIDE,CL 107 mmol/L (98-107); GLUCOSE RANDOM 102 mg/dL (74-106); POTASSIUM,K 3.5 mmol/L (3.5-5.1); SODIUM,NA 141 mmol/L (136-148)
--- NOTE | 2019-06-01 08:16 | PCM.PN ---
- General Info Date of Service: 06/01/19 - Review of Systems Systems Review Comment:: patient feel much better, denies any shortness of breath or cough. - Patient Data Vitals - Most Recent: Last Vital Signs Temp 37.7 C 06/01/19 05:08 Pulse 96 06/01/19 04:00 Resp 16 06/01/19 04:00 BP 99/51 L 06/01/19 04:00 Pulse Ox 98 06/01/19 04:00 Weight - Most Recent: 83.915 kg I&O - Last 24 Hours: Intake & Output 05/31/19 06/01/19 06/01/19 22:59 06:59 14:59 Intake Total 1527 Output Total 1100 Balance 427 Lab Results Last 24 Hours: Laboratory Results - last 24 hr 05/31/19 05/31/19 05/31/19 Range/Units 18:36 18:36 20:38 WBC 14.69 H (4.0-11.0) K/uL RBC 5.01 (4.50-5.90) M/uL Hgb 15.9 (13.0-17.0) g/dL Hct 48.1 (38.0-50.0) % MCV 96.0 (80.0-98.0) fL MCH 31.7 (27.0-32.0) pg MCHC 33.1 (31.0-37.0) g/dL RDW Std Deviation 50.5 (28.0-62.0) fl RDW Coeff of Feliciano 14 (11.0-15.0) % Plt Count 217 (150-400) K/uL MPV 10.20 (7.40-12.00) fL Neut % (Auto) 87.0 H (48.0-80.0) % Lymph % (Auto) 6.1 L (16.0-40.0) % [place] % (Auto) 4.2 (0.0-15.0) % Eos % (Auto) 2.4 (0.0-7.0) % Baso % (Auto) 0.3 (0.0-1.5) % Neut # (Auto) 12.8 H (1.4-5.7) K/uL Lymph # (Auto) 0.9 (0.6-2.4) K/uL [place] # (Auto) 0.6 (0.0-0.8) K/uL Eos # (Auto) 0.4 (0.0-0.7) K/uL Baso # (Auto) 0.0 (0.0-0.1) K/uL Nucleated RBC % 0.0 /100WBC Nucleated RBCs # 0 K/uL Lactate (0.20-2.00) mmol/L Sodium 138 (136-148) mmol/L Potassium 4.7 (3.5-5.1) mmol/L Chloride 103 (98-107) mmol/L Carbon Dioxide 26.6 (21.0-32.0) mmol/L BUN 15 (7.0-18.0) mg/dL Creatinine 1.1 (0.8-1.3) mg/dL Est Cr Clr Drug Dosing 95.08 mL/min Estimated GFR (MDRD) > 60.0 ml/min Glucose 95 (74-106) mg/dL Calcium 8.9 (8.5-10.1) mg/dL Magnesium 2.1 (1.8-2.4) mg/dL Total Bilirubin 0.4 (0.2-1.0) mg/dL AST 19 (15-37) IU/L ALT 34 (14-63) IU/L Alkaline Phosphatase 74 (46-116) U/L Total Protein 7.3 (6.4-8.2) g/dL Albumin 4.2 (3.4-5.0) g/dL Globulin 3.1 (2.6-4.0) g/dL Albumin/Globulin Ratio 1.4 (0.9-1.6) Urine Color YELLOW Urine Appearance CLEAR Urine pH 6.0 (5.0-8.0) Ur Specific [place] 1.025 (1.001-1.035) Urine Protein NEGATIVE (NEGATIVE) mg/dL Urine Glucose (UA) NEGATIVE (NEGATIVE) mg/dL Urine Ketones NEGATIVE (NEGATIVE) mg/dL Urine Occult Blood TRACE-LYSED H (NEGATIVE) Urine Nitrite NEGATIVE (NEGATIVE) Urine Bilirubin NEGATIVE (NEGATIVE) Urine Urobilinogen 0.2 (<2.0) EU/dL Ur Leukocyte Esterase NEGATIVE (NEGATIVE) Urine RBC 0-1 (0-2/HPF) Urine WBC 0-1 (0-5/HPF) Ur Epithelial Cells RARE (NONE-FEW) Urine Bacteria RARE (NEGATIVE) 05/31/19 06/01/19 06/01/19 Range/Units 22:27 06:26 06:26 WBC 8.05 (4.0-11.0) K/uL RBC 4.32 L (4.50-5.90) M/uL Hgb 13.5 (13.0-17.0) g/dL Hct 41.6 (38.0-50.0) % MCV 96.3 (80.0-98.0) fL MCH 31.3 (27.0-32.0) pg MCHC 32.5 (31.0-37.0) g/dL RDW Std Deviation 50.9 (28.0-62.0) fl RDW Coeff of Feliciano 14 (11.0-15.0) % Plt Count 189 (150-400) K/uL MPV 10.20 (7.40-12.00) fL Neut % (Auto) 71.5 (48.0-80.0) % Lymph % (Auto) 19.6 (16.0-40.0) % [place] % (Auto) 5.5 (0.0-15.0) % Eos % (Auto) 3.2 (0.0-7.0) % Baso % (Auto) 0.2 (0.0-1.5) % Neut # (Auto) 5.8 H (1.4-5.7) K/uL Lymph # (Auto) 1.6 (0.6-2.4) K/uL [place] # (Auto) 0.4 (0.0-0.8) K/uL Eos # (Auto) 0.3 (0.0-0.7) K/uL Baso # (Auto) 0.0 (0.0-0.1) K/uL Nucleated RBC % 0.0 /100WBC Nucleated RBCs # 0 K/uL Lactate 1.5 (0.20-2.00) mmol/L Sodium 141 (136-148) mmol/L Potassium 3.5 (3.5-5.1) mmol/L Chloride 107 (98-107) mmol/L Carbon Dioxide 24.2 (21.0-32.0) mmol/L BUN 12 (7.0-18.0) mg/dL Creatinine 1.0 (0.8-1.3) mg/dL Est Cr Clr Drug Dosing 104.58 mL/min Estimated GFR (MDRD) > 60.0 ml/min Glucose 102 (74-106) mg/dL Calcium 7.5 L (8.5-10.1) mg/dL Magnesium (1.8-2.4) mg/dL Total Bilirubin 0.3 (0.2-1.0) mg/dL AST 17 (15-37) IU/L ALT 28 (14-63) IU/L Alkaline Phosphatase 57 (46-116) U/L Total Protein 5.8 L (6.4-8.2) g/dL Albumin 3.1 L (3.4-5.0) g/dL Globulin 2.7 (2.6-4.0) g/dL Albumin/Globulin Ratio 1.2 (0.9-1.6) Urine Color Urine Appearance Urine pH (5.0-8.0) Ur Specific [place] (1.001-1.035) Urine Protein (NEGATIVE) mg/dL Urine Glucose (UA) (NEGATIVE) mg/dL Urine Ketones (NEGATIVE) mg/dL Urine Occult Blood (NEGATIVE) Urine Nitrite (NEGATIVE) Urine Bilirubin (NEGATIVE) Urine Urobilinogen (<2.0) EU/dL Ur Leukocyte Esterase (NEGATIVE) Urine RBC (0-2/HPF) Urine WBC (0-5/HPF) Ur Epithelial Cells (NONE-FEW) Urine Bacteria (NEGATIVE) Dexter Results Last 24 Hours: Microbiology 05/31/19 19:24 Influenza Type A Antigen Screen - Final Nasopharyngeal Swab NEGATIVE INFLUENZA A VIRUS AG REFERENCE RANGE: NEGATIVE Influenza Type B Antigen Screen - Final NEGATIVE INFLUENZA B VIRUS AG REFERENCE RANGE: NEGATIVE Med Orders - Current: Current Medications Acetaminophen (Tylenol) 650 mg PO Q4H PRN PRN Reason: Pain (Mild 1-3)/fever Last Admin: 06/01/19 05:08 Dose: 650 mg Sodium Chloride (Normal Saline) 1,000 mls @ 125 mls/hr IV ASDIRECTED BERNABE Last Admin: 05/31/19 23:31 Dose: 125 mls/hr Discontinued Medications Sodium Chloride (Normal Saline) 1,000 mls @ 1,000 mls/hr IV .Bolus ONE Stop: 05/31/19 20:33 Last Admin: 05/31/19 19:42 Dose: 1,000 mls/hr Levofloxacin/Dextrose 750 mg/ (Premix) 150 mls @ 100 mls/hr IV ONETIME ONE Stop: 05/31/19 23:40 Last Admin: 05/31/19 23:31 Dose: 100 mls/hr - Exam General: Alert Neck: Supple Lungs: Clear to Auscultation, Normal Respiratory Effort Cardiovascular: Regular Rate, Regular Rhythm GI/Abdominal Exam: Soft, Non-Tender Extremities: Non-Tender, No Pedal Edema Sepsis Event Note - Evaluation Sepsis Screening Result: No Definite Risk - Focused Exam Vital Signs: Vital Signs Temp Temp Temp Pulse Resp BP Pulse Ox 06/01/19 05:08 37.7 C 06/01/19 04:00 37.7 C 96 16 99/51 L 98 06/01/19 00:39 37.1 C 16 106/57 L 95 05/31/19 21:51 100.5 C H 97 18 116/79 98 05/31/19 21:22 37.2 C 99 14 111/62 99 Date Exam was Performed: 06/01/19 Time Exam was Performed: 08:15 - Problem List Review Problem List Initiated/Reviewed/Updated: Yes - My Orders Last 24 Hours: My Active Orders 05/31/19 22:12 Oxygen Therapy [RC] PRN Up ad Tanisha [RC] ASDIRECTED VTE/DVT Education [RC] Q12H Vital Signs [RC] Q4H Acetaminophen [Tylenol] 650 mg PO Q4H PRN Sequential Compression Device [OM.PC] Per Unit Routine Resuscitation Status Routine 05/31/19 22:13 Antiembolic Devices [RC] PER UNIT ROUTINE 05/31/19 22:15 Sodium Chloride 0.9% [Normal Saline] 1,000 ml IV ASDIRECTED 06/01/19 06:42 CORONAVIRUS (COVID-19) PCR [MREF] Routine - Plan Plan:: 38 yo male admitted for fever and possible pneumonia. Clinically appears better today. We will continue to monitor. We will continue Levaquin. Blood cultures pending. Will order COVID19 test.
== END 2019-06-01 09:40 | disposition home or self-care (01) ==
LOC: MW.ED 17:13 → MW.MS 19:47
PROVIDERS: ADMIT Internal Medicine; ATTEND Internal Medicine
DX: R50.9 Fever, unspecified (principal); E86.0 Dehydration; F17.210 Nicotine dependence, cigarettes, uncomplicated; Z88.0 Allergy status to penicillin; Z20.828 Contact with and (suspected) exposure to other viral communicable diseases
CPT/HCPCS: 36415; 71046; 80053; 81001; 83605; 83735; 85025; 87040; 87635; 87804; 96361; 96374; 99285; A9270; G0378; J1956; J7030; 96360; 99284; U0001; U0002